=== PATIENT | female | born 1975 | race Hispanic/Latino ===

== ENCOUNTER 2016-10-03 09:49 | Observation (INO) | payer MEDICAID ==
[2016-10-03 11:33] LABS: BASO # 0.1 K/uL (0.0-0.2); BASO % 0.5 % (0.0-2.0); EOS # 0.3 K/uL (0.0-0.7); EOS % 2.2 % (0.0-4.0); LYMPH # 4.5 K/uL (1.0-4.3); LYMPH % 36.4 % (20.0-40.0); MEAN CELL VOLUME 96.6 fL (81.0-99.0); MEAN CORPUSCULAR HEMOGLOBIN 31.9 pg (27.0-31.0); MEAN CORPUSCULAR HGB CONC 33.1 g/dL (33.0-37.0); MEAN PLATELET VOLUME 8.3 fL (7.2-11.7); RED CELL DISTRIBUTION WIDTH 14.2 % (11.5-14.5); WHITE BLOOD COUNT 12.3 K/uL (4.8-10.8)
--- NOTE | 2016-10-03 11:45 | C.PDOC ---
History Of Present Illness 41 y/o female with Hx of Opioid abuse and psych disorder brought to ED by EMS after being found in street unresponsive and as per witness having a seizure ( Unclear). Upon arrival patient spoke to nurse and admitted to taking Xanax but denied use of any other drugs. Patient denied Suicidal Ideation. No other complaints at this time. Time Seen by Provider: 10/03/16 10:42 Chief Complaint (Nursing): Substance Abuse History Per: Patient History/Exam Limitations: no limitations Recent Seizure Activity Began: Just Before Arrival Number Of Seizures: One Past Medical History Reviewed: Historical Data, Nursing Documentation, Vital Signs Vital Signs: Last Vital Signs Temp 98.7 F 10/03/16 17:02 Pulse 87 10/03/16 17:02 Resp 20 10/03/16 17:02 BP 105/68 10/03/16 17:02 Pulse Ox 98 10/03/16 17:02 - Medical History PMH: Bipolar Disorder, Depression, Schizophrenia Surgical History: Denies: Pacemaker - [facility] Procedures DETOXIFICATION SERVICES FOR SUBSTANCE ABUSE TREATMENT (08/10/15) DRUG DETOXIFICATION (12/17/14) GROUP AUTOGRAPHER FOR SUBSTANCE ABUSE TREATMENT, PSYCHOEDUCATION (08/10/15) GROUP COUNSELING FOR SUBSTANCE ABUSE TREATMENT, BEHAVIORAL (06/20/15) GROUP PSYCHOTHERAPY (06/20/15) INDIV PSYCHOTHERAPY FOR SUBSTANCE ABUSE TREATMENT, SUPPORT (06/20/15) Family History: States: Unknown Family Hx - Social History Hx Tobacco Use: Yes Hx Alcohol Use: No Hx Substance Use: Yes - Immunization History Hx Tetanus Toxoid Vaccination: Yes Hx Influenza Vaccination: No Hx Pneumococcal Vaccination: No Review Of Systems Review Of Systems: ROS cannot be obtained secondary to pt's inabilty to answer questions. Physical Exam - Physical Exam Appears: Other (Lethargic) Skin: Normal Color, Warm Head: Atraumatic, Normacephalic Neck: Normal ROM, Supple Chest: Symmetrical Cardiovascular: Rhythm Regular Respiratory: No Rales, No Rhonchi, No Wheezing Gastrointestinal/Abdominal: No Tenderness, No Guarding, No Rebound Back: Normal Inspection Neurological/Psych: Oriented x3, Inappropriate Response To Command ED Course And Treatment - Laboratory Results Result Diagrams: 10/03/16 11:30 10/03/16 11:30 O2 Sat by Pulse Oximetry: 98 (RA) Pulse Ox Interpretation: Normal ED OBSERVATION Date of observation admission: 10/03/16 Time of observation admission: 10:10 - Observation admission statement Patient is being placed in observation because:: Patient poorly responsive - Goals of Observation Goals of observation are:: Pending sobriety, possibly requesting detox - Progress Note Progress Note: 10/03/16 18:29 Patient woke up a bit and walked to the bathroom, requested detox. When crisis came to evaluate, patient was very sleepy and not answering questions. Disposition - Disposition Disposition: HOSPITALIZED Disposition Time: 12:18 Condition: GUARDED - Clinical Impression Clinical Impression: Altered consciousness - PA / FLEX O WRITER OPERATOR / Resident Statement MD/DO has reviewed & agrees with the documentation as recorded. MD/DO has examined the patient and agrees with the treatment plan. - Scribe Statement The provider has reviewed the documentation as recorded by the Emmyibsarwat Mirza All medical record entries made by the Emmyibsarwat were at my direction and personally dictated by me. I have reviewed the chart and agree that the record accurately reflects my personal performance of the history, physical exam, medical decision making, and the department course for this patient. I have also personally directed, reviewed, and agree with the discharge instructions and disposition. Physician Patient Turnover Patient Signed Over To: Connor Lemus Handoff Comments: patient on ED Obs for evaluation by crisis.
[2016-10-03 11:46] LABS: CHLORIDE 97 mmol/L (98-107); POTASSIUM 3.2 mmol/L (3.6-5.2); SODIUM 139 mmol/L (132-148)
[2016-10-03 11:48] LABS: ALB/GLOB RATIO 1.3 (1.0-2.1); ALKALINE PHOSPHATASE 125 U/L (38-126); AST/SGOT 60 U/L (14-36); BILIRUBIN,TOTAL 0.6 mg/dL (0.2-1.3); BLOOD UREA NITROGEN 15 mg/dL (7-17); CARBON DIOXIDE 31 mmol/L (22-30); GFR AFRICAN-AMERICAN > 60; TOTAL PROTEIN 6.8 g/dL (6.3-8.3)
[2016-10-03 11:49] LABS: ALCOHOL SERUM < 10 mg/dl (0-10); ALT/SGPT 130 U/L (9-52); CALCIUM 8.5 mg/dl (8.6-10.4); GLUCOSE,RANDOM 97 mg/dL (65-105)
[2016-10-03 12:15] LABS: RBC URINE < 1 /hpf (0-3); URINE BILIRUBIN NEGATIVE (NEGATIVE); URINE BLOOD NEGATIVE (NEGATIVE); URINE COLOR Yellow (YELLOW); URINE GLUCOSE (UA) NORMAL (Normal); URINE KETONE NEGATIVE (NEGATIVE); URINE LEUKOCYTE ESTERASE NEG Leu/uL (Negative); URINE PROTEIN NEGATIVE (NEGATIVE); URINE UROBILINOGEN NORMAL mg/dL (0.2-1.0); WBC URINE < 1 /hpf (0-5)
[2016-10-03 12:15] LABS: VALPROIC ACID < 10.0 ug/mL (50.0-100.0)
[2016-10-03 13:28] VITALS: O2SAT 98
[2016-10-03] MEDS ORDERED: Naloxone 0.4 mg/ml Inj (Adult) IVP ONE (14:57)
[2016-10-03] MEDS ORDERED: Sodium Chloride 0.9% 1,000 ML IV ONE (14:58)
[2016-10-03] MEDS ORDERED: Naloxone 0.4 mg/ml Inj (Adult) ONE (15:01)
[2016-10-03 17:03] VITALS: PULSE 87
[2016-10-03 19:15] VITALS: BP 104/68; RESP 18; TEMP 98.6
--- NOTE | 2016-10-04 20:03 | CARD ---
APPROVED REPORT EKG Measurement Heart [id number] <Conclusion> Normal sinus rhythm Normal ECG
== END 2016-10-03 19:00 | disposition home or self-care (01) ==
LOC: C.ER 09:49 → C.9OBSV 14:42
PROVIDERS: ADMIT Emergency Medicine; ATTEND Emergency Medicine
DX: F11.10 Opioid abuse, uncomplicated (principal); F15.10 Other stimulant abuse, uncomplicated; F14.10 Cocaine abuse, uncomplicated; F12.10 Cannabis abuse, uncomplicated; F13.10 Sedative, hypnotic or anxiolytic abuse, uncomplicated; Z87.891 Personal history of nicotine dependence
CPT/HCPCS: 80053; 80164; 80185; 80320; 80324; 80329; 80345; 80346; 80349; 80353; 80358; 80361; 81001; 83992; 84703; 85025; 93005; 96361; 96374; 99285; G0378; J2310

== ENCOUNTER 2017-11-19 07:05 | Inpatient (IN) | payer MEDICAID ==
[2017-11-19 07:18] VITALS: BMI 24.0
[2017-11-19 07:57] LABS: BASO # 0.1 K/uL (0.0-0.2); BASO % 0.8 % (0.0-2.0); EOS # 0.2 K/uL (0.0-0.7); EOS % 2.2 % (0.0-4.0); HEMOGLOBIN 13.2 g/dL (11.0-16.0); LYMPH % 30.7 % (20.0-40.0); MEAN CELL VOLUME 98.2 fL (81.0-99.0); MEAN CORPUSCULAR HEMOGLOBIN 34.4 pg (27.0-31.0); MEAN CORPUSCULAR HGB CONC 35.1 g/dL (33.0-37.0); MEAN PLATELET VOLUME 7.4 fL (7.2-11.7); MONO # 0.9 K/uL (0.0-0.8); MONO % 8.8 % (0.0-10.0); NEUT # 5.5 K/uL (1.8-7.0); NEUT % 57.5 % (50.0-75.0); RBC 3.83 Mil/uL (3.80-5.20); RED CELL DISTRIBUTION WIDTH 14.8 % (11.5-14.5); WHITE BLOOD COUNT 9.6 K/uL (4.8-10.8)
[2017-11-19 08:07] LABS: ALB/GLOB RATIO 1.4 (1.0-2.1); ALBUMIN 3.9 g/dL (3.5-5.0); ALT/SGPT 535 U/L (9-52); AST/SGOT 279 U/L (14-36); BLOOD UREA NITROGEN 6 mg/dL (7-17); CALCIUM 8.5 mg/dl (8.6-10.4); GFR AFRICAN-AMERICAN > 60; GFR NON-AFRICAN AMERICAN > 60
[2017-11-19 08:31] LABS: SQUAMOUS EPITHIAL 2 /hpf (0-5); URINE BILIRUBIN NEGATIVE (NEGATIVE); URINE CLARITY Clear (Clear); URINE COLOR Yellow (YELLOW); URINE GLUCOSE (UA) NORMAL (Normal); URINE LEUKOCYTE ESTERASE NEG Leu/uL (Negative); URINE PROTEIN NEGATIVE (NEGATIVE)
[2017-11-19 08:32] LABS: URINE BLOOD 1+ (NEGATIVE)
[2017-11-19 08:35] LABS: BARBITURATES, UR NEGATIVE (NEGATIVE); BENZODIAZEPINES, UR NEGATIVE (NEGATIVE); PHENCYCLIDINE, UR NEGATIVE (NEGATIVE)
[2017-11-19 08:56] LABS: OPIATES, UR POSITIVE (NEGATIVE)
--- NOTE | 2017-11-19 09:15 | C.PDOC ---
History Of Present Illness 42yo female, with history of depression comes to ER with suicidal ideation. She also states she has relapsed into using heroin. She denies any suicidal plan, homicidal ideation at this moment. She offers no medical complaints. Time Seen by Provider: 11/19/17 07:21 Chief Complaint (Nursing): Psychiatric Evaluation History Per: Patient History/Exam Limitations: no limitations Onset/Duration Of Symptoms: Days Current Symptoms Are (Timing): Still Present Modifying Factor(s): Narcotics Associated Symptoms: Depression, Suicidal Thoughts. denies: Suicidal Plan Additional History Per: Patient Past Medical History Reviewed: Historical Data, Nursing Documentation, Vital Signs Vital Signs: Last Vital Signs Temp 98.0 F 11/19/17 07:18 Pulse 73 11/19/17 07:18 Resp 18 11/19/17 07:18 BP 112/76 11/19/17 07:18 Pulse Ox 96 11/19/17 10:38 - Medical History PMH: Bipolar Disorder, Depression, Hepatitis (HEP C), Schizophrenia Denies: Anxiety, Asthma, Bronchitis, Cardia Arrhythmia, CHF, COPD, Dementia, Diabetes, Emphysema, HIV, HTN, Hypercholesterolemia, Hyperthyroidism, Hypothyroidism, Kidney Stones, Migraine, Mitral Valve Prolapse, Multiple Sclerosis, Parkinson's Disease, Peripheral Edema, Personality Disorder, Pneumonia, Pulmonary Embolism, Chronic Kidney Disease, Seizures, Sickle Cell Disease, Sexually Transmitted Disease, Sleep Apnea, TIA Surgical History: No Surg Hx Denies: Pacemaker - [facility] Procedures DETOXIFICATION SERVICES FOR SUBSTANCE ABUSE TREATMENT (08/10/15) DRUG DETOXIFICATION (12/17/14) GROUP TROUBLE LOCATOR TEST DESK FOR SUBSTANCE ABUSE TREATMENT, PSYCHOEDUCATION (08/10/15) GROUP COUNSELING FOR SUBSTANCE ABUSE TREATMENT, BEHAVIORAL (06/20/15) GROUP PSYCHOTHERAPY (06/20/15) INDIV PSYCHOTHERAPY FOR SUBSTANCE ABUSE TREATMENT, SUPPORT (06/20/15) Family History: States: No Known Family Hx, Unknown Family Hx - Social History Hx Tobacco Use: Yes Hx Alcohol Use: No Hx Substance Use: Yes - Immunization History Hx Tetanus Toxoid Vaccination: Yes Hx Influenza Vaccination: No Hx Pneumococcal Vaccination: No Review Of Systems Except As Marked, All Systems Reviewed And Found Negative. Constitutional: Negative for: Fever, Chills Cardiovascular: Negative for: Chest Pain Respiratory: Negative for: Shortness of Breath Gastrointestinal: Negative for: Abdominal Pain Psych: Positive for: Depression, Suicidal ideation Physical Exam - Physical Exam Appears: Non-toxic Skin: Normal Color Head: Normacephalic Eye(s): bilateral: Normal Inspection Neck: Normal ROM, Supple Chest: Symmetrical Cardiovascular: Rhythm Regular Respiratory: Normal Breath Sounds Gastrointestinal/Abdominal: Soft, No Tenderness Extremity: Normal ROM Neurological/Psych: Oriented x3 ED Course And Treatment - Laboratory Results Result Diagrams: 11/19/17 07:51 11/19/17 07:51 O2 Sat by Pulse Oximetry: 96 (RA) Pulse Ox Interpretation: Normal Medical Decision Making Medical Decision Making: Impression: Suicidal ideation Plan: -- Labs -- UDS -- Urinalysis Time: 907 Patient medically cleared Time: 0 Patient seen and evaluated by crisis team and is to be admitted under Dr. Cheung for depression. Disposition Discussed With Dr.: Von Cheung Doctor Will See Patient In The: Hospital Counseled Patient/Family Regarding: Studies Performed, Diagnosis - Disposition Disposition: HOSPITALIZED Disposition Time: 10:39 Condition: FAIR Forms: [facility] (Tuvaluan) - Clinical Impression Clinical Impression: Major depression - Scribe Statement The provider has reviewed the documentation as recorded by the Virgil Lozoya Provider Attestation: All medical record entries made by the Virgil were at my direction and personally dictated by me. I have reviewed the chart and agree that the record accurately reflects my personal performance of the history, physical exam, medical decision making, and the department course for this patient. I have also personally directed, reviewed, and agree with the discharge instructions and disposition.
[2017-11-19] MEDS ORDERED: Aluminum Hydroxide/Magnesium Hydroxide Susp (30 mL) PO PRN (19:11)
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
--- NOTE | 2017-11-20 23:17 | PCM.PYCHPN ---
Psychiatric Progress Note - Psychiatric Progress Note Patient seen today, length of contact: 15 minutes Patient Chief Complaint: I'm feeling better. Problems Identified/Issues Discussed: Patient seen, chart reviewed, case discussed with the staff. Issues related to illness and treatment were discussed with the patient and staff. Reported compliant with treatment with no adverse affects. Tolerating treatment very well. Patient reported feeling better. Calm and cooperative with good eye contact. Aftercare discussed with the patient. Awake alert oriented 3, no delusions, no auditory or visual hallucination, nose suicidal ideation or homicidal ideation at time of evaluation. Medical Problems: Hepatitis C Hypercholesterinemia Diagnostic Results: Reviewed DSM 5 Symptoms Update: Some improvement with treatment Medication Change: No Medical Record Reviewed: Yes Mental Status Examination - Cognitive Function Orientation: Person, Place, Situation, Time Memory: Intact Attention: WNL Concentration: WNL Association: WNL Fund of Knowledge: WN Decription of patient's judgement and insights: Fair - Mood Mood: Depressed (Less than before) - Affect Affect: Other (Appropriate) - Speech Speech: Appropriate - Formal Thought Process Formal Thought Process: No Impairment Psychotic Thoughts and Behaviors: None - Suicidal Ideation Suicidal Ideation: No - Homicidal Ideation Homicidal Ideation: No Goal/Treatment Plan - Goal/Treatment Plan Need for Continued Stay: Remain at risks for inpatient hospitalization, Discharge may exacerbated symptoms, Severe functional impairment Progress Toward Problem(s) and Goals/Treatment Plan: Patient education. Supportive therapy. CBT for relapse prevention. [place] for abstinence. Continue treatment as before. Estimated Date of D/C: 11/25/17 - Smoking Cessation Smoking Cessation Initiated: Yes
[2017-11-21] MEDS ORDERED: Pneumococcal 23-Valent Vaccine IM ONE (10:00)
--- NOTE | 2017-11-21 19:37 | PCM.PYCHPN ---
Psychiatric Progress Note - Psychiatric Progress Note Patient seen today, length of contact: 15 minutes Patient Chief Complaint: I'm feeling much better. Problems Identified/Issues Discussed: Patient seen, chart reviewed, case discussed with the staff. Issues related to illness and treatment were discussed with the patient and staff. Reported compliant with treatment with no adverse affects. Tolerating treatment very well. Patient reported feeling much better. Calm and cooperative with good eye contact. Aftercare discussed with the patient. Awake alert oriented 3, no delusions, no auditory or visual hallucination, nose suicidal ideation or homicidal ideation at time of evaluation. Medical Problems: Hepatitis C Hypercholesterinemia Diagnostic Results: Reviewed DSM 5 Symptoms Update: Improving with treatment Medication Change: No Medical Record Reviewed: Yes Mental Status Examination - Cognitive Function Orientation: Person, Place, Situation, Time Memory: Intact Attention: WNL Concentration: WNL Association: WNL Fund of Knowledge: WN Decription of patient's judgement and insights: Fair - Mood Mood: Depressed (Much less than before) - Affect Affect: Other (Appropriate) - Speech Speech: Appropriate - Formal Thought Process Formal Thought Process: No Impairment Psychotic Thoughts and Behaviors: None - Suicidal Ideation Suicidal Ideation: No - Homicidal Ideation Homicidal Ideation: No Goal/Treatment Plan - Goal/Treatment Plan Need for Continued Stay: Remain at risks for inpatient hospitalization, Discharge may exacerbated symptoms, Severe functional impairment Progress Toward Problem(s) and Goals/Treatment Plan: Patient education. Supportive therapy. CBT for relapse prevention. [place] for abstinence. Continue treatment as before. Patient wants to go to [facility] for follow-up care after discharge from the hospital. Estimated Date of D/C: 11/25/17 - Smoking Cessation Smoking Cessation Initiated: Yes
--- NOTE | 2017-11-22 13:41 | PCM.PYCHPN ---
Psychiatric Progress Note - Psychiatric Progress Note Patient seen today, length of contact: 15 minutes Patient Chief Complaint: "I'm getting better" Problems Identified/Issues Discussed: The pt is seen, chart reviewed, case discussed with staff. Support and psychoeducation given, CBT and [place] used briefly No new symptoms reported, improving slowly and needs more time No SEs from medications, risks discussed. After care discussed Medication Change: No Medical Record Reviewed: Yes Mental Status Examination - Cognitive Function Orientation: Person, Place, Situation, Time Memory: Intact Attention: WNL Concentration: WNL Association: WNL Fund of Knowledge: WNL - Mood Mood: Depressed (Much less than before) - Affect Affect: Other (Appropriate) - Speech Speech: Appropriate - Formal Thought Process Formal Thought Process: No Impairment - Suicidal Ideation Suicidal Ideation: No - Homicidal Ideation Homicidal Ideation: No Goal/Treatment Plan - Goal/Treatment Plan Need for Continued Stay: Discharge may exacerbated symptoms, Severe functional impairment Progress Toward Problem(s) and Goals/Treatment Plan: Continue medications Support and psychoeducation daily Attend groups and activities daily After care planning by RENETTA Estimated Date of D/C: 11/25/17
[2017-11-23] MEDS ORDERED: Sodium Chloride 0.9% 1,000 ML IV ONE (06:50)
[2017-11-23 09:33] LABS: BASO # 0.1 K/uL (0.0-0.2); BASO % 0.7 % (0.0-2.0); EOS # 0.2 K/uL (0.0-0.7); EOS % 3.1 % (0.0-4.0); HEMOGLOBIN 12.7 g/dL (11.0-16.0); LYMPH # 2.8 K/uL (1.0-4.3); LYMPH % 36.2 % (20.0-40.0); MEAN CELL VOLUME 98.9 fL (81.0-99.0); MEAN CORPUSCULAR HEMOGLOBIN 33.3 pg (27.0-31.0); MEAN CORPUSCULAR HGB CONC 33.7 g/dL (33.0-37.0); MEAN PLATELET VOLUME 8.1 fL (7.2-11.7); MONO # 0.7 K/uL (0.0-0.8); NEUT # 3.9 K/uL (1.8-7.0); RBC 3.82 Mil/uL (3.80-5.20); RED CELL DISTRIBUTION WIDTH 14.8 % (11.5-14.5); WHITE BLOOD COUNT 7.7 K/uL (4.8-10.8)
[2017-11-23 09:45] LABS: ALB/GLOB RATIO 1.3 (1.0-2.1); ALBUMIN 3.4 g/dL (3.5-5.0); ALT/SGPT 395 U/L (9-52); AST/SGOT 223 U/L (14-36); BLOOD UREA NITROGEN 10 mg/dL (7-17); CALCIUM 8.6 mg/dl (8.6-10.4); GFR AFRICAN-AMERICAN > 60; GFR NON-AFRICAN AMERICAN > 60
--- NOTE | 2017-11-23 09:50 | CP.PCM.CON ---
History of Present Illness - History of Present Illness History of Present Illness: Medicine Consult Note This patient is a 42 years old female with hx of bipolar d/o, polysubstance abuse and recent diagnosis of Hep C. She was admitted to [facility] on 11/19 for methadone taper and management of her psychiatric conditions. On 11/23/17 medicine was consulted because the patient was found to be hypotensive 90/60, however she was asymptomatic. Pt admits that her blood pressure has been historically low and these values are normal for her. She denies ever having symptoms of chest pain, syncope, difficulty breathing, or lightheadedness in relation to her low blood pressure. She has never been on any medication for this. Upon examination the patient is conversing normally, without difficulty and her current blood pressure values reflect the aforementioned range. Pmhx: Bipolar d/o, Hep c (recently diagnosed and undergoing treatment for this- will start therapy soon at [facility]), polysubstance abuse Pshx: tubal ligation Meds: no home meds Allergies: NKDA Social Hx: 1/2 pack per day tobacco hx for >20yrs, Heroine: hx of IV use and currently using 10-15bags a day via snorting, Cannabis use recreational, denies alcohol consumption Fam Hx: unsure/denied Review of Systems - Constitutional Constitutional: absent: Chills, Fever, Weakness - EENT Eyes: absent: Blurred Vision, Change in Vision, Spots in Vision Nose/Mouth/Throat: absent: Nasal Congestion, Nasal Discharge, Facial Pain, Neck Pain - Cardiovascular Cardiovascular: absent: Chest Pain, Diaphoresis, Dyspnea, Syncope - Respiratory Respiratory: absent: Cough, Dyspnea, Wheezing, Chest Congestion - Gastrointestinal Gastrointestinal: absent: Abdominal Pain, Dysphagia, Nausea, Vomiting - Genitourinary Genitourinary: absent: Dysuria - Neurological Neurological: absent: Confusion, Loss of Vision, Syncope, Tingling, Weakness - Psychiatric Psychiatric: As Per HPI Past Patient History - Past Medical History & Family History Past Medical History?: Yes - Past Social History Smoking Status: Heavy Smoker > 10 Cigarettes Daily - CARDIAC Hx Cardia Arrhythmia: No Hx Congestive Heart Failure: No Hx Hypercholesterolemia: No Hx Hypertension: No Hx Mitral Valve Prolapse: No Hx Pacemaker: No Hx Peripheral Edema: No - PULMONARY Hx Asthma: No Hx Bronchitis: No Hx Chronic Obstructive Pulmonary Disease (COPD): No Hx Emphysema: No Hx Pneumonia: No Hx Pulmonary Embolism: No Hx Sleep Apnea: No - NEUROLOGICAL Hx Dementia: No Hx Migraine: No Hx Multiple Sclerosis: No Hx Parkinson's Disease: No Hx Seizures: No Hx Transient Ischemic Attacks (TIA): No - HEENT Hx HEENT Problems: No - RENAL Hx Chronic Kidney Disease: No Hx Kidney Stones: No - ENDOCRINE/METABOLIC Hx Hyperthyroidism: No Hx Hypothyroidism: No - HEMATOLOGICAL/ONCOLOGICAL Hx Human Immunodeficiency Virus (HIV): No Hx Sickle Cell Disease: No - INTEGUMENTARY Hx Dermatological Problems: No - MUSCULOSKELETAL/RHEUMATOLOGICAL Hx Falls: No - GASTROINTESTINAL Hx Gastrointestinal Disorders: No - GENITOURINARY/GYNECOLOGICAL Hx Sexually Transmitted Disorders: No - PSYCHIATRIC Hx Substance Use: Yes - SURGICAL HISTORY Hx Surgeries: Yes Hx Tubal Ligation: Yes - ANESTHESIA Hx Anesthesia: Yes Hx Anesthesia Reactions: No Meds Allergies/Adverse Reactions: Allergies Allergy/AdvReac Type Severity Reaction Status Date / Time No Known Allergies Allergy Verified 11/19/17 07:17 - Medications Medications: Current Medications Al Hydrox/Mg Hydrox/Simethicone (Maalox 30 Ml) 30 ml PO TID PRN PRN Reason: Indigestion / Heartburn Dicyclomine HCl (Bentyl) 10 mg PO Q6 PRN PRN Reason: Abdominal Cramps Hydroxyzine HCl (Atarax) 25 mg PO Q6 PRN PRN Reason: Anxiety Last Admin: 11/22/17 21:46 Dose: 25 mg Ibuprofen (Motrin Tab) 400 mg PO Q6 PRN PRN Reason: Pain, moderate (4-7) Loperamide HCl (Imodium) 2 mg PO Q8 PRN PRN Reason: Diarrhea Methadone HCl (Methadone) 10 mg PO Q24H SUNIL PRN Reason: Taper Stop: 11/24/17 10:14 Last Admin: 11/23/17 09:31 Dose: 5 mg Mirtazapine (Remeron) 15 mg PO HS SUNIL Ondansetron HCl (Zofran Tab) 4 mg PO Q8 PRN PRN Reason: Nausea/Vomiting Physical Exam - Head Exam Head Exam: ATRAUMATIC, NORMOCEPHALIC - Eye Exam Eye Exam: EOMI, Normal appearance - ENT Exam ENT Exam: Mucous Membranes Moist - Respiratory Exam Respiratory Exam: Clear to Auscultation Bilateral - Cardiovascular Exam Cardiovascular Exam: +S1, +S2 - GI/Abdominal Exam GI & Abdominal Exam: Normal Bowel Sounds, Soft. absent: Tenderness - Extremities Exam Extremities exam: Negative for: pedal edema, tenderness - Neurological Exam Neurological exam: Alert, Oriented x3 - Psychiatric Exam Psychiatric exam: Normal Affect, Normal Mood - Skin Skin Exam: Dry, Warm Results - Vital Signs Recent Vital Signs: Last Vital Signs Temp 98 F 11/23/17 06:00 Pulse 67 11/23/17 09:33 Resp 20 11/23/17 06:00 BP 103/65 11/23/17 09:33 Pulse Ox 97 11/23/17 06:00 - Labs Result Diagrams: 11/23/17 09:22 11/23/17 09:22 Labs: Laboratory Results - last 24 hr 11/23/17 09:22 WBC 7.7 RBC 3.82 Hgb 12.7 Hct 37.8 MCV 98.9 MCH 33.3 H MCHC 33.7 RDW 14.8 H Plt Count 322 MPV 8.1 Neut % (Auto) 51.0 Lymph % (Auto) 36.2 [place] % (Auto) 9.0 Eos % (Auto) 3.1 Baso % (Auto) 0.7 Neut # (Auto) 3.9 Lymph # (Auto) 2.8 [place] # (Auto) 0.7 Eos # (Auto) 0.2 Baso # (Auto) 0.1 Assessment & Plan - Assessment and Plan (Free Text) Plan: Polysubstance Abuse Patient currently under psychiatric treatment with Methadone therapy for opioid abuse Continue treatment as per psych Patient education. Supportive therapy. CBT for relapse prevention. ID for abstinence. We'll start methadone taper for opiate withdrawal symptoms. Other when necessary medications. Antidepressive medication. Patient wants to go to to [facility] for follow-up care after discharge from the hospital. Methadone 10mg PO q24hrs Bipolar D/O Management as per psych Atarax 10mg PO q6hrs Remeron 15mg PO QHS Hypotension Patient is completely asymptomatic She admits to a hx of low BP values EKG done and reviewed- sinus bradycardia No intervention at this time Continue to monitor Hep C Recently diagnosed at [facility] She is seeking outpatient treatment currently with a clinic at [facility] Phone number provided for medical records: [phone] Transaminitis Likely due to Hep C Will f/u with [facility] clinic outpatient for treatment upon discharge Continue to monitor Follow up AM labs Case discussed with Dr. Jeffrey West D.O.
--- NOTE | 2017-11-23 19:58 | PCM.PYCHPN ---
Psychiatric Progress Note - Psychiatric Progress Note Patient seen today, length of contact: 15 minutes Patient Chief Complaint: "I need one more day" Problems Identified/Issues Discussed: The pt is seen, chart reviewed, case discussed with staff. Support and psychoeducation given, [place] used briefly She had very low BP and P and medicine is called. She claims she always has that when she is withdrawing, not b/c of methadone or meds. Then, she refused to be transferred to medicine to get IV fluids She will be monitored closely She asked the technical writer and editor to stay until Fri of some housing problem which can cause relapse of her use, she said Will d/w team Medication Change: Yes (remeron) Medical Record Reviewed: Yes Mental Status Examination - Cognitive Function Orientation: Person, Place, Situation, Time Memory: Intact Attention: WNL Concentration: WNL Association: WNL Fund of Knowledge: WNL - Mood Mood: Depressed - Affect Affect: Broad - Speech Speech: Appropriate - Formal Thought Process Formal Thought Process: No Impairment - Suicidal Ideation Suicidal Ideation: No - Homicidal Ideation Homicidal Ideation: No Goal/Treatment Plan - Goal/Treatment Plan Need for Continued Stay: Discharge may exacerbated symptoms, Severe functional impairment Progress Toward Problem(s) and Goals/Treatment Plan: Continue medications Support and psychoeducation daily Attend groups and activities daily After care planning by RENETTA Estimated Date of D/C: 11/25/17
[2017-11-24 06:19] VITALS: O2SAT 98
[2017-11-24 08:30] LABS: BASO # 0.1 K/uL (0.0-0.2); BASO % 0.7 % (0.0-2.0); EOS # 0.3 K/uL (0.0-0.7); EOS % 3.5 % (0.0-4.0); LYMPH # 2.9 K/uL (1.0-4.3); LYMPH % 35.3 % (20.0-40.0); MEAN CORPUSCULAR HEMOGLOBIN 33.8 pg (27.0-31.0); MEAN CORPUSCULAR HGB CONC 34.1 g/dL (33.0-37.0); MEAN PLATELET VOLUME 7.6 fL (7.2-11.7); MONO # 0.8 K/uL (0.0-0.8); MONO % 9.5 % (0.0-10.0); NEUT # 4.2 K/uL (1.8-7.0); RBC 3.86 Mil/uL (3.80-5.20); RED CELL DISTRIBUTION WIDTH 14.6 % (11.5-14.5); WHITE BLOOD COUNT 8.3 K/uL (4.8-10.8)
[2017-11-24 08:42] LABS: ALB/GLOB RATIO 1.3 (1.0-2.1); ALBUMIN 3.4 g/dL (3.5-5.0); ALT/SGPT 422 U/L (9-52); AST/SGOT 257 U/L (14-36); BLOOD UREA NITROGEN 12 mg/dL (7-17); CALCIUM 8.7 mg/dl (8.6-10.4); GFR AFRICAN-AMERICAN > 60; GFR NON-AFRICAN AMERICAN > 60
--- NOTE | 2017-11-24 18:19 | PCM.PYCHPN ---
Psychiatric Progress Note - Psychiatric Progress Note Patient seen today, length of contact: 15 minutes Patient Chief Complaint: I am still withdrawing.' Medication Change: Yes (remeron) Medical Record Reviewed: Yes Mental Status Examination - Cognitive Function Orientation: Person, Place, Situation, Time Memory: Intact Attention: WNL Concentration: WNL Association: WNL Fund of Knowledge: Poor - Mood Mood: Depressed - Affect Affect: Broad - Speech Speech: Appropriate - Formal Thought Process Formal Thought Process: No Impairment - Suicidal Ideation Suicidal Ideation: No - Homicidal Ideation Homicidal Ideation: No Goal/Treatment Plan - Goal/Treatment Plan Need for Continued Stay: Discharge may exacerbated symptoms, Severe functional impairment Progress Toward Problem(s) and Goals/Treatment Plan: Bipolar 1 disorder depressed Opioid use disorder severe Cocaine use disorder moderate Cannabis use disorder moderate Patient education. Supportive therapy. CBT for relapse prevention. [place] for abstinence. Methadone taper for opiate withdrawal symptoms. Other when necessary medications. Antidepressive medication. Patient wants to go to to [facility] for follow-up care after discharge from the hospital. Estimated Date of D/C: 11/25/17
--- NOTE | 2017-11-24 23:12 | CP.PCM.PN ---
<Raquel Browne P - Last Filed: 11/24/17 23:18> Subjective - Date & Time of Evaluation Date of Evaluation: 11/24/17 Time of Evaluation: 09:00 - Subjective Subjective: PGY-1 medicine note for Hospitalist service. Patient seen and examined at the [address] [place] [address]. Patient seen talking and playing cards with other patients. She is in no acute distress. Denies any symptoms. There is no chest pain, shortness of breath, dizziness, lightheadedness, syncope and any other symptoms. Objective - Vital Signs/Intake and Output Vital Signs (last 24 hours): Temp Pulse Resp BP Pulse Ox 98 F 71 20 110/70 98 11/24/17 06:00 11/24/17 16:26 11/24/17 06:00 11/24/17 16:26 11/24/17 06:00 - Medications Medications: Current Medications Al Hydrox/Mg Hydrox/Simethicone (Maalox 30 Ml) 30 ml PO TID PRN PRN Reason: Indigestion / Heartburn Dicyclomine HCl (Bentyl) 10 mg PO Q6 PRN PRN Reason: Abdominal Cramps Hydroxyzine HCl (Atarax) 25 mg PO Q6 PRN PRN Reason: Anxiety Last Admin: 11/24/17 18:41 Dose: 25 mg Ibuprofen (Motrin Tab) 400 mg PO Q6 PRN PRN Reason: Pain, moderate (4-7) Loperamide HCl (Imodium) 2 mg PO Q8 PRN PRN Reason: Diarrhea Mirtazapine (Remeron) 15 mg PO HS [facility] Last Admin: 11/24/17 21:14 Dose: 15 mg Ondansetron HCl (Zofran Tab) 4 mg PO Q8 PRN PRN Reason: Nausea/Vomiting - Labs Labs: 11/24/17 08:24 11/24/17 08:24 - Constitutional Appears: Well, No Acute Distress - Head Exam Head Exam: ATRAUMATIC, NORMOCEPHALIC - Eye Exam Eye Exam: EOMI, Normal appearance - ENT Exam ENT Exam: Mucous Membranes Moist - Neck Exam Neck Exam: Normal Inspection - Respiratory Exam Respiratory Exam: Clear to Ausculation Bilateral, NORMAL BREATHING PATTERN. absent: Rales, Rhonchi, Wheezes, Respiratory Distress - Cardiovascular Exam Cardiovascular Exam: REGULAR RHYTHM, +S1, +S2 - GI/Abdominal Exam GI & Abdominal Exam: Soft, Normal Bowel Sounds. absent: Distended, Firm, Guarding, Tenderness - Extremities Exam Extremities Exam: Full ROM. absent: Calf Tenderness, Pedal Edema, Tenderness - Neurological Exam Neurological Exam: Alert, Awake, Normal Gait, Oriented x3 - Psychiatric Exam Psychiatric exam: Normal Mood - Skin Skin Exam: Dry, Normal Color, Warm Assessment and Plan - Assessment and Plan (Free Text) Plan: Polysubstance Abuse Patient currently under psychiatric treatment with Methadone therapy for opioid abuse Continue treatment as per psych Patient education. Supportive therapy. CBT for relapse prevention. [place] for abstinence. We'll start methadone taper for opiate withdrawal symptoms. Other when necessary medications. Antidepressive medication. Patient wants to go to to [facility] for follow-up care after discharge from the hospital. Methadone 10mg PO q24hrs Bipolar D/O Management as per psych Atarax 10mg PO q6hrs Remeron 15mg PO QHS Hypotension Patient is completely asymptomatic She admits to a hx of low BP values EKG done and reviewed- sinus bradycardia No intervention at this time Continue to monitor Hep C Recently diagnosed [place] [facility] She is seeking outpatient treatment currently with a clinic at [facility] Phone number provided for medical records: [phone] Transaminitis Likely due to Hep C Will f/u with [facility] clinic outpatient for treatment upon discharge Continue to monitor Follow up AM labs Patient is stable from a medical standpoint. No further medical intervention at this time. Re-consult as needed. <Zak Edwards - Last Filed: 11/25/17 07:13> Objective - Vital Signs/Intake and Output Vital Signs (last 24 hours): Temp Pulse Resp BP Pulse Ox 98 F 71 20 110/70 98 11/24/17 06:00 11/24/17 16:26 11/24/17 06:00 11/24/17 16:26 11/24/17 06:00 - Medications Medications: Current Medications Al Hydrox/Mg Hydrox/Simethicone (Maalox 30 Ml) 30 ml PO TID PRN PRN Reason: Indigestion / Heartburn Dicyclomine HCl (Bentyl) 10 mg PO Q6 PRN PRN Reason: Abdominal Cramps Hydroxyzine HCl (Atarax) 25 mg PO Q6 PRN PRN Reason: Anxiety Last Admin: 11/24/17 18:41 Dose: 25 mg Ibuprofen (Motrin Tab) 400 mg PO Q6 PRN PRN Reason: Pain, moderate (4-7) Loperamide HCl (Imodium) 2 mg PO Q8 PRN PRN Reason: Diarrhea Mirtazapine (Remeron) 15 mg PO HS [facility] Last Admin: 11/24/17 21:14 Dose: 15 mg Ondansetron HCl (Zofran Tab) 4 mg PO Q8 PRN PRN Reason: Nausea/Vomiting - Labs Labs: 11/24/17 08:24 11/24/17 08:24 Attending/Attestation - Attestation I have personally seen and examined this patient.: Yes I have fully participated in the care of the patient.: Yes I have reviewed all pertinent clinical information, including history, physical exam and plan: Yes Notes (Text): 11/25/17 07:10 Medical attending: Patient was seen and examined by me. Agree with the above note by the resident The patient was currently walking in the hallway and also the dining area of . She reported that overall was doing ok however the patient had questions about getting more methadone. Her blood work was stable, also her BP was stable in the high 90s systolic as well. thank you Zak Edwards
[2017-11-25 08:53] LABS: BASO # 0.1 K/uL (0.0-0.2); BASO % 0.8 % (0.0-2.0); EOS # 0.3 K/uL (0.0-0.7); EOS % 2.8 % (0.0-4.0); HEMOGLOBIN 13.9 g/dL (11.0-16.0); LYMPH # 3.2 K/uL (1.0-4.3); LYMPH % 35.6 % (20.0-40.0); MEAN CELL VOLUME 98.9 fL (81.0-99.0); MEAN CORPUSCULAR HEMOGLOBIN 33.7 pg (27.0-31.0); MEAN CORPUSCULAR HGB CONC 34.1 g/dL (33.0-37.0); MEAN PLATELET VOLUME 7.7 fL (7.2-11.7); MONO # 0.9 K/uL (0.0-0.8); MONO % 9.7 % (0.0-10.0); NEUT # 4.6 K/uL (1.8-7.0); NEUT % 51.1 % (50.0-75.0); RBC 4.12 Mil/uL (3.80-5.20); RED CELL DISTRIBUTION WIDTH 14.2 % (11.5-14.5); WHITE BLOOD COUNT 9.1 K/uL (4.8-10.8)
[2017-11-25 09:04] LABS: ALB/GLOB RATIO 1.4 (1.0-2.1); ALBUMIN 3.9 g/dL (3.5-5.0); ALT/SGPT 462 U/L (9-52); AST/SGOT 278 U/L (14-36); BLOOD UREA NITROGEN 13 mg/dL (7-17); CALCIUM 8.8 mg/dl (8.6-10.4); GFR AFRICAN-AMERICAN > 60; GFR NON-AFRICAN AMERICAN > 60
--- NOTE | 2017-11-25 11:21 | PCM.PYCHPN ---
Psychiatric Progress Note - Psychiatric Progress Note Patient seen today, length of contact: 15 minutes Patient Chief Complaint: I am still withdrawing.' Medication Change: Yes (remeron) Medical Record Reviewed: Yes Mental Status Examination - Cognitive Function Orientation: Person, Place, Situation, Time Memory: Intact Attention: WNL Concentration: WNL Association: WNL Fund of Knowledge: Poor - Mood Mood: Depressed - Affect Affect: Broad - Speech Speech: Appropriate - Formal Thought Process Formal Thought Process: No Impairment - Suicidal Ideation Suicidal Ideation: No - Homicidal Ideation Homicidal Ideation: No Goal/Treatment Plan - Goal/Treatment Plan Need for Continued Stay: Discharge may exacerbated symptoms, Severe functional impairment Progress Toward Problem(s) and Goals/Treatment Plan: Bipolar 1 disorder depressed Opioid use disorder severe Cocaine use disorder moderate Cannabis use disorder moderate Patient education. Supportive therapy. CBT for relapse prevention. [place] for abstinence. Methadone taper for opiate withdrawal symptoms. Other when necessary medications. Antidepressive medication. Patient wants to go to to [facility] for follow-up care after discharge from the hospital. Estimated Date of D/C: 11/25/17
--- NOTE | 2017-11-25 15:08 | CARD ---
APPROVED REPORT Date of service: 11/23/2017 EKG Measurement Heart [id number] <Conclusion> Sinus bradycardia Otherwise normal ECG
[2017-11-26 06:14] VITALS: BP 91/65; PULSE 67; RESP 20; TEMP 97.9
[2017-11-26 07:25] LABS: BASO # 0.1 K/uL (0.0-0.2); BASO % 0.8 % (0.0-2.0); EOS # 0.2 K/uL (0.0-0.7); EOS % 2.8 % (0.0-4.0); HEMOGLOBIN 13.2 g/dL (11.0-16.0); LYMPH # 3.1 K/uL (1.0-4.3); LYMPH % 36.9 % (20.0-40.0); MEAN CELL VOLUME 98.3 fL (81.0-99.0); MEAN CORPUSCULAR HEMOGLOBIN 34.5 pg (27.0-31.0); MEAN CORPUSCULAR HGB CONC 35.1 g/dL (33.0-37.0); MEAN PLATELET VOLUME 7.8 fL (7.2-11.7); MONO # 0.9 K/uL (0.0-0.8); MONO % 10.5 % (0.0-10.0); NEUT # 4.1 K/uL (1.8-7.0); NRBC % 0.1 % (0.0-2.0); RBC 3.84 Mil/uL (3.80-5.20); RED CELL DISTRIBUTION WIDTH 14.1 % (11.5-14.5); WHITE BLOOD COUNT 8.3 K/uL (4.8-10.8)
[2017-11-26 07:45] LABS: ALB/GLOB RATIO 1.3 (1.0-2.1); ALBUMIN 3.4 g/dL (3.5-5.0); ALT/SGPT 392 U/L (9-52); AST/SGOT 234 U/L (14-36); CALCIUM 8.6 mg/dl (8.6-10.4); GFR AFRICAN-AMERICAN > 60; GFR NON-AFRICAN AMERICAN > 60
[2017-11-26 08:00] LABS: BLOOD UREA NITROGEN 11 mg/dL (7-17)
--- NOTE | 2017-11-26 10:19 | PCM.PYCHDC ---
Mental Status Examination - Mental Status Examination Orientation: Person, Place, Situation, Time Memory: Intact Mood: Neutral Affect: Constricted Speech: Soft Attention: WNL Concentration: WNL Association: WNL Fund of Knowledge: WNL Formal Thought Process: No Impairment Description of patient's judgement and insight: good, fair Psychotic Thoughts and Behaviors: Denies any AVH Suicidal Ideation: No Current Homicidal Ideation?: No Discharge Summary - Discharge Note Laboratory Data: Abnormal Lab Results 11/26/17 11/26/17 07:06 07:06 WBC 8.3 RBC 3.84 Hgb 13.2 Hct 37.7 MCV 98.3 MCH 34.5 H MCHC 35.1 RDW 14.1 Plt Count 309 MPV 7.8 Neut % (Auto) 49.0 L Lymph % (Auto) 36.9 [place] % (Auto) 10.5 H Eos % (Auto) 2.8 Baso % (Auto) 0.8 Neut # (Auto) 4.1 Lymph # (Auto) 3.1 [place] # (Auto) 0.9 H Eos # (Auto) 0.2 Baso # (Auto) 0.1 Sodium 141 Potassium 4.8 Chloride 104 Carbon Dioxide 27 Anion Gap 14 BUN 11 Creatinine 0.8 Est GFR ( Amer) > 60 Est GFR (Non-Af Amer) > 60 Random Glucose 95 Calcium 8.6 Total Bilirubin 0.4 AST 234 H ALT 392 H Alkaline Phosphatase 82 Total Protein 6.1 L Albumin 3.4 L Globulin 2.6 Albumin/Globulin Ratio 1.3 Consultations:: List each consultation separately and include: 1. Reason for request. 2. Findings. 3. Follow-up Summary of Hospital Course include:: 1. Description of specific treatment plan utilized for patients during their course of treatmen. 2. Summarize the time- course for resolution of acute symptoms and/or regressed behaviors. 3. Describe issues identified and worked on during hospitalization. 4. Describe medication utilized. 5. Describe medical problems identified and treated. 6. Reassessment of suicide risk - Final Diagnosis (DSM 5) Condition upon Discharge: FAIR Disposition: HOME/ ROUTINE Follow-up Treatment Plan: Bipolar 1 disorder depressed Opioid use disorder severe Cocaine use disorder moderate Cannabis use disorder moderate Patient education. Supportive therapy. CBT for relapse prevention. [place] for abstinence. Methadone taper for opiate withdrawal symptoms. Other when necessary medications. Antidepressive medication. Patient wants to go to to [facility] for follow-up care after discharge from the hospital. Prescriptions/Medication Reconciliation: Mirtazapine [Remeron] 30 mg PO HS #30 tab
== END 2017-11-26 11:13 | disposition home or self-care (01) | DRG 430 ==
LOC: C.ER 07:05 → C.5E 10:38
PROC: GZHZZZZ Group Psychotherapy (ICD-10-PCS; principal; 2017-11-19)
PROC: HZ2ZZZZ Detoxification Services for Substance Abuse Treatment (ICD-10-PCS; 2017-11-19)
PROC: HZ52ZZZ Individual Psychotherapy for Substance Abuse Treatment, Cognitive-Behavioral (ICD-10-PCS; 2017-11-19)
PROC: HZ59ZZZ Individual Psychotherapy for Substance Abuse Treatment, Supportive (ICD-10-PCS; 2017-11-19)
PROC: HZ56ZZZ Individual Psychotherapy for Substance Abuse Treatment, Psychoeducation (ICD-10-PCS; 2017-11-19)
PROC: HZ42ZZZ Group Counseling for Substance Abuse Treatment, Cognitive-Behavioral (ICD-10-PCS; 2017-11-19)
PROC: HZ46ZZZ Group Counseling for Substance Abuse Treatment, Psychoeducation (ICD-10-PCS; 2017-11-19)
PROC: GZ58ZZZ Individual Psychotherapy, Cognitive-Behavioral (ICD-10-PCS; 2017-11-19)
PROC: GZ56ZZZ Individual Psychotherapy, Supportive (ICD-10-PCS; 2017-11-19)
DX: F31.9 Bipolar disorder, unspecified (principal); F11.23 Opioid dependence with withdrawal; B19.20 Unspecified viral hepatitis C without hepatic coma; F14.20 Cocaine dependence, uncomplicated; F20.9 Schizophrenia, unspecified; R45.851 Suicidal ideations; E78.00 Pure hypercholesterolemia, unspecified; F12.20 Cannabis dependence, uncomplicated; F17.210 Nicotine dependence, cigarettes, uncomplicated; I95.9 Hypotension, unspecified